=== PATIENT | female | born 1935 | race Caucasian/White ===

== ENCOUNTER 2016-08-03 13:48 | Emergency (ER) | payer MEDICARE, BC ==
[2016-08-03 14:14] VITALS: BP 143/61
[2016-08-03] MEDS ORDERED: Cephalexin CAP* 500 MG PO ONE (14:49)
--- NOTE | 2016-08-03 14:51 | UC ---
Skin Complaint HPI - HPI Summary HPI Summary: 80 yo female with right arm redness and pain x 1+day Had cardiac cath 07/23 art line right radius artery large hematoma at d/c no f/c no cp or sob - History of Current Complaint Chief Complaint: UCSkin Time Seen by Provider: 08/03/16 14:40 Stated Complaint: ARM-RED STREAK/WARM Hx Obtained From: Patient, Family/[employer] - daughter Onset/Duration: Gradual Onset, Lasting Days Timing: Constant Onset Severity: Mild Current Severity: Mild Pain Intensity: 2 Pain Scale Used: 0-10 Numeric Location: Discrete Character: Swelling, Pain, Redness Aggravating: Touch Alleviating: Nothing Associated Signs & Symptoms: Positive: Tenderness Related History: Trauma - recheck art line - Allergy/Home Medications Allergies/Adverse Reactions: Allergies Allergy/AdvReac Type Severity Reaction Status Date / Time No Known Allergies Allergy Verified 08/03/16 14:14 Home Medications: Home Medications Acetaminophen [Eq Acetaminophen] 2 tab PO Q4HR PRN 08/03/16 [History Confirmed 08/03/16] Clopidogrel TAB* [Plavix TAB*] 1 tab PO DAILY 08/03/16 [History Confirmed ] Nitroglycerin TAB 0.4 MG* 1 tab SL SEE INSTRUCTIONS PRN 08/03/16 [History Confirmed 08/03/16] Review of Systems Constitutional: Negative Skin: Bruising Eyes: Negative ENT: Negative Respiratory: Negative Cardiovascular: Negative Gastrointestinal: Negative Genitourinary: Negative Motor: Negative Neurovascular: Negative Musculoskeletal: Negative Neurological: Negative Psychological: Negative All Other Systems Reviewed And Are Negative: Yes PMH/Surg Hx/FS Hx/Imm Hx Previously Healthy: Yes Cardiovascular History Of: Reports: Cardiac Disorders - HEART ATTACK WITH STENTS , Hypertension Respiratory History Of: Reports: COPD - Surgical History Surgical History: Yes Surgery Procedure, Year, and Place: 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 VASCULAR SURGERY- Right leg; Abdominal stents. Cardiac Cath. Cardiac Stents - Family History Known Family History: Positive: Cardiac Disease, Hypertension - Social History Alcohol Use: None Substance Use Type: None Smoking Status (MU): Former Smoker When Did the Patient Quit Smoking/Using Tobacco: 1990 Physical Exam Triage Information Reviewed: Yes Appearance: Well-Appearing, No Pain Distress, Well-Nourished Vital Signs: Initial Vital Signs Temp 97.8 F 08/03/16 14:08 Pulse 92 08/03/16 14:08 Resp 18 08/03/16 14:08 BP 143/61 08/03/16 14:08 Pulse Ox 96 08/03/16 14:08 Eyes: Positive: Conjunctiva Clear ENT: Positive: Hearing grossly normal. Negative: Nasal congestion, Nasal drainage, Trismus, Muffled/hoarse voice Neck: Positive: Supple Respiratory: Positive: Lungs clear, Normal breath sounds, No respiratory distress Cardiovascular: Positive: RRR, No Murmur Musculoskeletal: Positive: ROM Intact Neurological: Positive: Alert Psychological Exam: Normal Skin: Positive: Other Course/Dx - Diagnoses Provider Diagnoses: ascending lymphangitis Discharge - Discharge Plan Condition: Critical Disposition: HOME Prescriptions: Cephalexin CAP* [Keflex CAP*] 500 mg PO QID #28 cap Patient Education Materials: Lymphangitis (ED) Referrals: Willie Parish DO [Primary Care Provider] - 3 Days Additional Instructions: elevate heat recheck in 2-3 days Images Front/Back of Body, Lg ([place]): 1 - erthyema and resolving ecchymosis
== END 2016-08-03 15:05 | disposition home or self-care (01) ==
LOC: UCEAST 13:48
DX: I89.1 Lymphangitis (principal); I25.2 Old myocardial infarction; J44.9 Chronic obstructive pulmonary disease, unspecified; Z87.891 Personal history of nicotine dependence; L53.9 Erythematous condition, unspecified; R58 Hemorrhage, not elsewhere classified
CPT/HCPCS: 99212; A9270-GY; G0463

== ENCOUNTER 2018-06-04 15:01 | Emergency (ER) | payer MEDICARE, BC ==
[2018-06-04 15:34] VITALS: BP 129/59
--- NOTE | 2018-06-04 15:58 | UC ---
Skin Complaint HPI - HPI Summary HPI Summary: Pt is accompanied daughter. Pt reports that she had URI like symptoms last week. NOw has c/o erythematous skin around bilateral eyes that is "itchy" Denies fever, chills, or pain, or blisters. - History of Current Complaint Chief Complaint: UCEye Time Seen by Provider: 06/04/18 15:36 Stated Complaint: EYE ISSUE Hx Obtained From: Patient ?: No Onset/Duration: Gradual Onset, Lasting Days, Still Present Skin Exposure Onset/Duration: Days Ago Timing: Constant Onset Severity: Mild Current Severity: Mild Pain Intensity: 0 Location: Discrete, Face Character: Swelling, Pruritus, Redness, Raised Aggravating Factor(s): Touch Alleviating Factor(s): Nothing Associated Signs & Symptoms: Positive: Negative - Allergy/Home Medications Allergies/Adverse Reactions: Allergies Allergy/AdvReac Type Severity Reaction Status Date / Time No Known Allergies Allergy Verified 06/04/18 15:23 Home Medications: Home Medications amLODIPine TAB* [Norvasc 5 mg TAB*] 1 tab DAILY 06/04/18 [History Confirmed ] predniSONE TAB* [Deltasone TAB*] 5 mg PO DAILY 06/04/18 [History Confirmed 06/04] PMH/Surg Hx/FS Hx/Imm Hx Cardiovascular History: Hypertension Respiratory History: COPD - Surgical History Surgical History: Yes Surgery Procedure, Year, and Place: 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 VASCULAR SURGERY- Right leg; Abdominal stents. Cardiac Cath. Cardiac Stents - Family History Known Family History: Positive: Cardiac Disease, Hypertension - Social History Occupation: Retired Lives: Alone Alcohol Use: None Substance Use Type: None Smoking Status (MU): Former Smoker Have You Smoked in the Last Year: No When Did the Patient Quit Smoking/Using Tobacco: 1990 Review of Systems All Other Systems Reviewed And Are Negative: Yes Constitutional: Positive: Negative Skin: Positive: Rash Eyes: Positive: Negative ENT: Positive: Negative Respiratory: Positive: Negative Cardiovascular: Positive: Negative Gastrointestinal: Positive: Negative Genitourinary: Positive: Negative Motor: Positive: Negative Neurovascular: Positive: Negative Musculoskeletal: Positive: Negative Neurological: Positive: Negative Psychological: Positive: Negative Is Patient Immunocompromised?: No Physical Exam Triage Information Reviewed: Yes Appearance: Well-Appearing Vital Signs: Initial Vital Signs Temp 96.3 F 06/04/18 15:28 Pulse 94 06/04/18 15:28 Resp 16 06/04/18 15:28 BP 129/59 06/04/18 15:28 Pulse Ox 94 06/04/18 15:28 Vital Signs Reviewed: Yes Eye Exam: Normal ENT Exam: Normal Dental Exam: Normal Neck exam: Normal Respiratory Exam: Normal Cardiovascular: Positive: Murmur:Sys:Grade _?_/ Musculoskeletal Exam: Normal Neurological Exam: Normal Psychological Exam: Normal Skin Exam: Other - mild erythematous dry skin slight raised around bilateral eyes. Pt c/o that it i is itchy and skin "coulter" when she applies her daily face lotion. Pt was advised to stop applying lotion around eyes. Course/Dx - Differential Diagnoses - Skin Complaint Differential Diagnoses: Contact Dermatitis, Urticaria - Diagnoses Provider Diagnosis: Contact dermatitis Discharge - Sign-Out/Discharge Documenting (check all that apply): Patient Departure All imaging exams completed and their final reports reviewed: No Studies - Discharge Plan Condition: Stable Disposition: HOME Prescriptions: Cetirizine* [ZyrTEC 10 MG TAB*] 10 mg PO DAILY #10 tab Patient Education Materials: Contact Dermatitis (ED) Referrals: Christiane Phan MD [Medical Doctor] - If Needed Willie Parish DO [Primary Care Provider] - If Needed Additional Instructions: Recommended lotions: Cetaphil, Aquaphor, and Neutrogena - Billing Disposition and Condition Condition: STABLE Disposition: Home
== END 2018-06-04 16:05 | disposition home or self-care (01) ==
LOC: UCCORT 15:01
DX: L25.9 Unspecified contact dermatitis, unspecified cause (principal); J44.9 Chronic obstructive pulmonary disease, unspecified; I10 Essential (primary) hypertension; Z87.891 Personal history of nicotine dependence; Z79.899 Other long term (current) drug therapy
CPT/HCPCS: 99212; G0463